=== PATIENT | female | born 1950 | race Hispanic/Latino ===

== ENCOUNTER → 2020-11-10 | Outpatient (RCR) | payer MEDICARE | LOC: PT 11-01 10:50 | PROVIDERS: ATTEND Physician Assistant | DX: M25.511 Pain in right shoulder (principal); M25.611 Stiffness of right shoulder, not elsewhere classified; M75.41 Impingement syndrome of right shoulder; M75.51 Bursitis of right shoulder ==

== ENCOUNTER 2020-12-08 12:46 | Outpatient (RCR) | payer MEDICARE | END 2020-12-10 | LOC: PT 12:46 | PROVIDERS: ATTEND Physician Assistant | DX: M75.41 Impingement syndrome of right shoulder (principal); M25.511 Pain in right shoulder; M25.611 Stiffness of right shoulder, not elsewhere classified | CPT/HCPCS: 97139 ==